=== PATIENT | male | born 1970 | race Two or more races ===

== ENCOUNTER 2024-05-04 08:28 | Emergency (ER) | payer OTHER, SELFPAY ==
[2024-05-04 08:31] VITALS: BP 110/74
--- NOTE | 2024-05-04 09:39 | ED.GENMED ---
History of Present Illness
General
Chief Complaint: Headache
Time Seen by Provider: 05/04/24 09:38
History of Present Illness
History of Present Illness:
TIME OF INITIAL ENCOUNTER: 9:40 AM
HPI: Over the past 10 days or so, the patient has been having headaches. He also developed bitemporal paresthesias. Although he has no focal motor weakness, he does describe some subjective ataxia and says that he almost fell into a door jam while
going through a door due to feeling off balance. He does have a history of migraines but this is not necessarily feeling a migraine to him. He does have some mild photophobia and did have some nausea last night.
EXAM:
GENERAL: Well appearing in no distress
HEENT: Moist oral mucosa
CARDIOVASCULAR: No murmurs, normal heart rate, regular rhythm, No chest wall tenderness
PULMONARY: No respiratory distress, breath sounds are clear and equal
ABDOMEN: Soft with no peritoneal signs, no tenderness
NEUROLOGIC: Excellent strength all extremities, no coordination deficits, I had the patient walk and he was able to walk without any difficulty, no ataxia noted, normal finger-nose testing, no sensory
PSYCHIATRIC: Appropriate mental status, normal insight and judgement
EXTREMITIES: Nontender, no edema, moves all extremities equally
SKIN: No rash, no lesions
NUMBER AND COMPLEXITY OF PROBLEMS ADDRESSED AT THE ENCOUNTER
� Chronic conditions affecting care: History of migraines
� Acute Exacerbation and/or Progression of Chronic Illness: This is an acute problem
� Differential Diagnosis includes: Exacerbation of migraine, complex migraine, intracranial pathology
AMOUNT AND/OR COMPLEXITY OF DATA TO BE REVIEWED AND ANALYZED
� I performed an independent evaluation of and my interpretation is:
EKG:
CT: The CAT scan of the brain shows no acute abnormality
X-rays:
Laboratory Studies: White count 4.0, normal hemoglobin, chemistries relatively unremarkable potassium is noted to be 5.3 but renal function is normal. Sed rate normal
Other:
� Review of other/old records: No old records available for review
� Clinical information was obtained by an independent historian: None needed
� Prescriptions/Medications Considered but not given:
� Further testing considered but not performed:
RISK OF COMPLICATIONS AND/OR MORBIDITY OR MORTALITY OF PATIENT MANAGEMENT
� Social determinants of health affecting care: Lives at home
� Discussion with other providers:
� Escalation of care including admission/observation vs risk of discharge considered: The patient was given IV fluids, Reglan/Benadryl and Toradol.
ANY OTHER UPDATES:
12:10 PM: I reassessed patient. Patient reports only minimal improvement after treatment was given however the patient appears comfortable. Unclear etiology of patient's symptoms. PMD has arranged for an MRI as an outpatient next week. He has a
nonfocal neurologic examination. Possible tension type of headache. No evidence for giant cell arteritis based on blood work.
Phy Exam
Physical Exam
Physical Exam:
See HPI
Course
Orders/Labs/Results
Orders:
Orders
05/04/24 09:49
CT Head W/o Iv Contrast Urgent
Comment:
Reason For Exam: IRBY w/ subjective ataxia
0.9% Sodium Chloride 1000 ml [Nss] 1,000 ml IV BOLUS
Diphenhydramine [Benadryl] 25 mg IV NOW STA
Ketorolac [Toradol] 15 mg IV NOW STA
Metoclopramide [Reglan] 10 mg IV NOW STA
05/04/24 10:00
Basic Metabolic Panel Urgent
CBC/With ESR Urgent
Abnormal Lab Results
05/04/24
10:00
WBC 4.0 L 10^3/uL
(4.8-10.8)
MCH 32.1 H pg
(27.0-31.0)
Monocytes % 14.7 H %
(1.7-9.3)
Potassium 5.3 H mmol/L
(3.5-5.1)
BUN 24 H mg/dl
(9-20)
Glucose 107 H mg/dl
(70-99)
05/04/24 10:00
05/04/24 10:00
Vital Signs
Initial and Last Documented VS:
Initial Vital Signs
Temp Pulse Resp BP Pulse Ox
36.5 C 67 18 110/74 100
05/04/24 08:31 05/04/24 08:31 05/04/24 08:31 05/04/24 08:31 05/04/24 08:31
Last Documented Vital Signs
Temp Pulse Resp BP Pulse Ox
36.5 C 67 18 110/74 100
05/04/24 08:31 05/04/24 08:31 05/04/24 08:31 05/04/24 08:31 05/04/24 08:31
*Critical Care Note
Total Time (30-74mins, 75-104mins- exclusive of procedures): Not Applicable
ED Attending Note
-
Portions of this chart may have been created with voice recognition software.� Occasional wrong word or��sound alike� substitutions may have occurred due to the inherent limitations of voice recognition software.
Discharge Plan
Departure
Referrals:
Carlos Alberto Grossman DO [Family Provider] -
Interventions
Interventions:
*Risk Screen - Suicide Last Done: 05/04/24 08:31
*General Assessment Last Done: 05/04/24 08:31
*Neglect/Abuse Screening Last Done: 05/04/24 08:31
ED- Neurological Assessment Last Done: 05/04/24 09:26
Discharge Date and Time
Print Language: SPANISH
[2024-05-04 10:07] LABS: % Basophils 0.8 % (0-2); % Eosinophils 3.5 % (0-6); % Immature Granulocytes 0.5 % (0-0.5); % Lymphocytes 33.2 % (20.5-51.1); % Monocytes 14.7 % (1.7-9.3); % Neutrophils 47.3 % (42.2-75.2); Absolute Eosinophils 0.1 10^3/uL (0-0.7); Absolute Lymphocytes 1.3 10^3/uL (1.2-3.4); Absolute Monocytes 0.6 10^3/uL (0.1-0.6); Absolute Neutrophils 1.9 10^3/uL (1.4-6.5); Hematocrit 47.1 % (39.0-52.0); Hemoglobin 16.1 g/dL (13.0-18.0); Mean Corp Hgb Conc. 34.2 g/dL (33.0-37.0); Mean Corpuscular Hgb 32.1 pg (27.0-31.0); Mean Platelet Volume 9.8 fL (7.4-10.4); Nucleated Red Blood Cells % 0 % (-); Platelet Count 192 10^3/uL (130-400); Red Blood Cell Count 5.01 10^6/uL (4.70-6.10)
[2024-05-04] MEDS: NSS 1000 IV (10:07)
[2024-05-04] MEDS: REGLAN 10 MG IV (10:08)
[2024-05-04] MEDS: TORADOL 15 MG IV (10:08)
[2024-05-04] MEDS: BENADRYL 25 MG IV (10:08)
[2024-05-04 10:25] LABS: Blood Urea Nitrogen 24 mg/dl (9-20); Calcium 10.1 mg/dl (8.4-10.2); Carbon Dioxide 30 mmol/L (22-30); Chloride 103 mmol/L (98-107); Glucose 107 mg/dl (70-99); Potassium 5.3 mmol/L (3.5-5.1); Sodium 138 mmol/L (135-145); eGFR > 60.00
[2024-05-04 10:40] LABS: Erythrocyte Sed Rate 7 mm/hour (0-20)
== END 2024-05-04 12:30 | disposition home or self-care (01) ==
LOC: EMR 08:28
PROVIDERS: EMERGENCY PHYSICIAN Emergency Medicine; FAMILY PHYSICIAN Family Medicine
DX: R51.9 Headache, unspecified (principal); R20.2 Paresthesia of skin
CPT/HCPCS: 99284; 96374; 96375 ×2; 96361; 70450; 80048; 85025; 85652